=== PATIENT | male | born 1985 | race Asian ===

== ENCOUNTER → 2017-02-20 | Outpatient (CLI) | payer BC ==
[2017-02-20 16:21] LABS: DAYS OF ABSTINENCE 2; METHOD OF COLLECTION MASTURBATION; SEMEN COLOR GRAY OR GRAY-WHITE (GRY/GRYWHTE); SEMEN TIME OF COLLECTION 1430; TYPE OF SPECIMEN CONTAINER STERILE CUP
[2017-02-20 16:23] LABS: SPERM VIABILITY STAIN NOT INDICATED % (>58%)
== END | disposition home or self-care (01) ==
LOC: C.LAB 15:17
PROVIDERS: ATTEND Specialist
DX: Z31.41 Encounter for fertility testing (principal)

== ENCOUNTER → 2017-05-01 | Outpatient (CLI) | payer BC ==
--- NOTE | 2017-05-01 09:24 | DIAGNOSTIC IMAGING REPORT ---
CHEST 2 VIEWS ROUTINE HISTORY: 31 years-old Male J45.901 asthma with acute cough. COMPARISON: None available TECHNIQUE: Frontal and lateral views of the chest FINDINGS: Cardiomediastinal and hilar silhouettes are within normal limits. No pneumothorax, pleural effusion, focal airspace consolidation or overt pulmonary edema. Lungs are mildly hyperinflated. No significant bronchial wall thickening is identified. Bones are grossly intact. Upper abdominal structures appear to be within normal limits. IMPRESSION: Mild hyperinflation without acute cardiopulmonary process. The above report was generated using voice recognition software. It may contain grammatical, syntax or spelling errors. Electronically signed by: Fam Rodriguez M.D. 05/01/2017 9:23 AM Dictated Date/Time: 05/01/2017 9:21 AM
== END | disposition home or self-care (01) ==
LOC: C.RAD1850 09:11
PROVIDERS: ATTEND Family Medicine
DX: J45.901 Unspecified asthma with (acute) exacerbation (principal)